=== PATIENT | female | born 1995 | race Caucasian/White ===

== ENCOUNTER 2020-01-18 21:54 | Emergency (ER) | payer BC ==
[2020-01-18 22:14] VITALS: BP 96/57; PULSE 65; TEMP 98.1; BMI 23.6
[2020-01-18] MEDS ORDERED: ONDANSETRON 4 MG/2 ML VIAL IVPUSH ONE (22:43)
[2020-01-18] MEDS ORDERED: SODIUM CHLORIDE 1,000 ML IV STA (22:43)
[2020-01-18] MEDS ORDERED: ACETAMINOPHEN 1000 MG/100 ML VIAL (NON FORMULARY) IVPB ONE (23:02)
--- NOTE | 2020-01-18 23:10 | PDOC ---
History of Present Illness - General Chief Complaint: Pain, Acute Stated Complaint: ABD PAIN Time Seen by Provider: 01/18/20 22:22 History Source: Patient Exam Limitations: No Limitations - History of Present Illness Initial Comments: Pt is a 24 yo F, with no significant PMH, who is presenting with abdominal pain, multiple episodes of NBNB vomiting and loose brown stool today. Pt states these symptoms started this afternoon after eating a quesadilla. Pt lives with her infant and who are not ill. The pain is sarai-umbilical, cramping, intermittent, and does not radiate. Pt has not taken any analgesics at home. Pt states her LMP was "about a month ago and was just spotting" and is concerned she may be . Pt denies any fevers/chills, headache, vision changes, syncope, chest pain, palpitations, SOB, urinary symptoms, constipation, or leg swelling. Allergies: NKDA PCP: None Social: Pt denies any cigarette, alcohol, or drug use. LMP "last month", see above Pt denies any recent travel or sick contacts. Surgical: no relevant history. Family: no relevant history. 01/19/20 00:58 01/19/20 03:29 01/19/20 03:42 Past History - Travel History Traveled outside of the country in the last 30 days: No Close contact w/someone who was outside of country & ill: No - Medical History Allergies/Adverse Reactions: Allergies Allergy/AdvReac Type Severity Reaction Status Date / Time No Known Allergies Allergy Verified 01/18/20 23:25 COPD: No - Reproductive History Is Patient Now?: No - Psycho-Social/Smoking History Smoking History: Never smoked - Substance Abuse Hx (Audit-C & DAST Scrn) How often the patient has a drink containing alcohol: Never Score: In Men: 4 or > Positive; In Women: 3 or > Positive: 0 Screen Result (Pos requires Nsg. Audit-10AR): Negative In the last yr the pt used illegal drug/Rx for NonMed reason: No Score: Yes response is considered Positive: 0 Screen Result (Positive result requires Nsg. DAST-10): Negative Abd/GI Specific PMHX - Complaint Specific PMHX Colitis: No Diverticulitis: No Gall Bladder Disease: No GERD: No Hepatitis: No Irritable Bowel Synd (IBS): No Pancreatitis: No GI Ulcer Disease: No Review of Systems - Review of Systems Able to Perform ROS?: Yes Is the patient limited Persian proficient: No Constitutional: Yes: Weight Stable. No: Chills, Diaphoresis, Fever, Loss of Appetite, Malaise, Weakness HEENTM: No: Recent change in vision, Nose Congestion, Throat Pain, Throat Swelling Respiratory: No: Cough, Orthopnea, Shortness of Breath Cardiac (ROS): No: Chest Pain, Edema, Irregular Heart Rate, Lightheadedness, Palpitations, Syncope, Chest Tightness ABD/GI: Yes: See HPI, Diarrhea, Nausea, Vomiting, Abdominal cramping. No: Abdominal Distended, Blood Streaked Bowels, Constipated, Poor Appetite, Poor Fluid Intake, Rectal Bleeding : No: Burning, Dysuria, Discharge, Frequency, Hematuria, Pain, Urgency Musculoskeletal: No: Back Pain, Muscle Pain Integumentary: No: Rash Neurological: No: Headache, Numbness, Weakness, Unsteady Gait, Dizziness Psychiatric: No: Sleep Pattern Change, Change in Appetite Endocrine: No: Increased Urine, Change in Weight Hematologic/Lymphatic: No: Anemia, Blood Clots, Easy Bleeding, Easy Bruising All Other Systems: Reviewed and Negative *Physical Exam - Vital Signs Last Vital Signs Temp Pulse Resp BP Pulse Ox 98.1 F 65 19 96/57 L 100 01/18/20 22:10 01/18/20 22:10 01/18/20 22:10 01/18/20 22:10 01/18/20 22:10 - Physical Exam Vitals stable, pt afebrile. Pt in NAD, thin body habitus. Pt alert and oriented x3. nurse school generally intact, muscular strength and sensation intact. No midline spinal tenderness, step-offs, or crepitus. Head normocephalic, atraumatic. Eyes PERRLA, EOMI. Oropharynx without erythema or exudates, no LAD b/l. No nasal congestion. Hearing intact. Clear heart sounds, S1/S2, no JVD, b/l pedal edema, or heart murmur. Clear lung sounds, no respiratory distress, wheezes, crackles, or accessory muscle use. No abdominal or CVA tenderness to palpation, no rebound, no guarding. Abdomen soft, non-distended, and with normoactive bowel sounds. Skin without jaundice or rash. 01/19/20 03:43 ED Treatment Course - LABORATORY CBC & Chemistry Diagram: 01/18/20 23:03 01/18/20 23:03 Medical Decision Making - Medical Decision Making Pt was seen at bedside, also will be seen by attending Dr. [place]. Pt presenting with generalized abdominal pain, accompanied by both NBNB vomiting and loose stool after eating a delivered meal, consistent with gastroenteritis. Pt well appearing, VSS. Will also evaluate for . Abdominal pain is non- migratory, abdomen is soft and non-tender, less concerning for appendicitis or ovarian pathology. No urinary symptoms or vaginal bleeding. Provided 4 mg IV zofran, 1 g ofirmev, 1 L IV NS for improvement of pain and nausea. Will continue to reassess pt and monitor for symptomatic improvement. 01/19/20 03:44 Labs unremarkable Pt improved after IVF and pain control. VSS stable, pt ambulatory in ED without assistance, tolerated PO intake in ED. Pt safe for d/c to home with PCP f/u. Strict return precautions provided with pt understanding. 01/19/20 03:46 Discharge - Discharge Information Problems reviewed: Yes Clinical Impression/Diagnosis: Gastroenteritis, Vomiting and diarrhea Condition: Improved Disposition: HOME - Admission No - Follow up/Referral Referrals: [facility] – [place] [facility] [place] [Provider Group] - Patient Discharge Instructions Patient Printed Discharge Instructions: DI for Viral Gastroenteritis -- Adult Additional Instructions: You were seen in the ER today for vomiting and diarrhea. The results of your labs today were normal and you are not . You did not wish to have a COVID swab today. Please follow-up with your primary care doctor within 1-2 days to discuss your visit and make sure your symptoms have improved. Please continue to drink plenty of fluids and eat bland food as tolerated. Please return to the ER if you have any worsening pain, development of fevers or chills, loss of consciousness, inability to tolerate food or fluids, or any other concerns. You can take tylenol or motrin every 4-6 hours as needed for pain. - Post Discharge Activity
[2020-01-18 23:57] LABS: BASO % 0.3 % (0-2.0); EOS % 0.5 % (0-4.5); HEMOGLOBIN 12.9 GM/dL (10.7-15.3); LYMPH % 14.1 % (8-40); MCH 28.5 pg (25.7-33.7); MCHC 33.2 g/dl (32.0-36.0); MEAN CELL VOLUME 85.9 fl (80-96); MEAN PLT VOLUME 10.7 fl (7.5-11.1); MONO % 5.9 % (3.8-10.2); NEUT % 79.2 % (42.8-82.8); PLATELET COUNT 190 K/MM3 (134-434); RBC 4.54 M/mm3 (3.60-5.2); RDW 16.4 % (11.6-15.6); WHITE BLOOD COUNT 10.7 K/mm3 (4.0-10.0)
--- NOTE | 2020-01-19 00:22 | PDOC ---
Attending Attestation - Resident Resident Name: Arti Blanco - ED Attending Attestation I have performed the following: I have examined & evaluated the patient, The case was reviewed & discussed with the resident, I agree w/resident's findings & plan, Exceptions are as noted - HPI HPI: 01/19/20 03:59 See resident HPI - Physicial Exam PE: 01/19/20 04:00 Agree with documented exam - Medical Decision Making 01/19/20 04:00 gi upset after eating delivered meal, no novel or toxic ingestions, sick contacts f/u labs symptomatic tx re-eval dispo per clinical course Discharge - Discharge Information Problems reviewed: Yes Clinical Impression/Diagnosis: Gastroenteritis, Vomiting and diarrhea Condition: Improved Disposition: HOME - Follow up/Referral Referrals: [facility] [place] [facility] [place] Group] - Patient Discharge Instructions Patient Printed Discharge Instructions: DI for Viral Gastroenteritis -- Adult Additional Instructions: You were seen in the ER today for vomiting and diarrhea. The results of your labs today were normal and you are not . You did not wish to have a COVID swab today. Please follow-up with your primary care doctor within 1-2 days to discuss your visit and make sure your symptoms have improved. Please continue to drink plenty of fluids and eat bland food as tolerated. P lease return to the ER if you have any worsening pain, development of fevers or chills, loss of consciousness, inability to tolerate food or fluids, or any other concerns. You can take tylenol or motrin every 4-6 hours as needed for pain. - Post Discharge Activity
[2020-01-19 00:28] LABS: ALBUMIN 3.6 g/dl (3.4-5.0); BILIRUBIN,TOTAL 0.2 mg/dL (0.2-1); BLOOD UREA NITROGEN 14.3 mg/dL (7-18); CALCIUM 9.2 mg/dL (8.5-10.1); CREATININE 0.6 mg/dL (0.55-1.3); POTASSIUM 3.7 mmol/L (3.5-5.1); TOT PROT 6.6 g/dl (6.4-8.2)
== END 2020-01-19 01:13 | disposition home or self-care (01) ==
LOC: JER 21:54
PROC: 3E0333Z Introduction of Anti-inflammatory into Peripheral Vein, Percutaneous Approach (ICD-10-PCS; principal; 2020-01-18)
PROC: 3E033GC Introduction of Other Therapeutic Substance into Peripheral Vein, Percutaneous Approach (ICD-10-PCS; 2020-01-18)
PROC: 3E0337Z Introduction of Electrolytic and Water Balance Substance into Peripheral Vein, Percutaneous Approach (ICD-10-PCS; 2020-01-18)
DX: K52.9 Noninfective gastroenteritis and colitis, unspecified (principal); R11.10 Vomiting, unspecified; R19.7 Diarrhea, unspecified
CPT/HCPCS: 36415; 80053; 83690; 84703; 85025; 99284-25; J0131